=== PATIENT | female | born 1955 | race Caucasian/White ===

== ENCOUNTER → 2018-05-19 | Outpatient (CLI) | payer OTHER | LOC: CIMAGING 10:00 | PROVIDERS: ATTEND Family Medicine | DX: M20.11 Hallux valgus (acquired), right foot (principal); M19.071 Primary osteoarthritis, right ankle and foot; M77.31 Calcaneal spur, right foot | CPT/HCPCS: 73630-PO ==

== ENCOUNTER 2018-09-08 16:26 | Emergency (ER) | payer OTHER ==
--- NOTE | 2018-09-08 17:30 | EDPHY ---
H & P Stated Complaint: HEAD INJURY ON 09/04 Time Seen by Provider: 09/08/18 16:47 HPI/ROS: CHIEF COMPLAINT: Head injury, concern about black eyes HISTORY OF PRESENT ILLNESS: 63-year-old female with history of meningioma and visual loss presents with a concern about black eyes. She tripped and fell forward while gardening 5 days ago. She twisted her neck, and may have hit her head. She has a low-grade headache 2/10 and neck discomfort since the injury. Today she looked in the mirror and thought that she had black eyes. This concern for black eyes prompted her visit today. REVIEW OF SYSTEMS: complete 10 point ROS reviewed and is negative except for the noted elements in the HPI Source: Patient - Personal History Current Tetanus Diphtheria and Acellular Pertussis (TDAP): Yes - Medical/Surgical History Hx Asthma: No Hx Chronic Respiratory Disease: No Hx Diabetes: No Hx Cardiac Disease: No Hx Renal Disease: No Hx Cirrhosis: No Hx Alcoholism: No Hx HIV/AIDS: No Hx Splenectomy or Spleen Trauma: No Other PMH: MENINGIOMA REMOVED 2015, R KNEE REPLACEMENT - Social History Smoking Status: Never smoked Alcohol Use: Sober Drug Use: None - Physical Exam Exam: General Appearance: Alert, pleasant Head: Atraumatic Eyes: No conjunctival erythema, no periorbital ecchymosis ENT, Mouth: No hemotympanum, no oral trauma, no bony tenderness Neck: No midline tenderness, full range of motion without pain Respiratory: No chest wall tenderness, lungs clear bilaterally Cardiovascular: Regular rate and rhythm Abdomen: Abdomen is soft and nontender Back: Normal inspection, no midline tenderness Skin: No lacerations, no abrasions Back: No midline T/L/S tenderness Extremities: Pelvis is stable and nontender; no extremity tenderness or deformity Neurological: A&Ox3, normal motor function, normal sensory exam, cranial nerves intact (except II) Psychiatric: Mood and affect normal Constitutional: Initial Vital Signs Temperature (C) 36.4 C 09/08/18 16:29 Heart Rate 80 09/08/18 16:29 Respiratory Rate 16 09/08/18 16:29 Blood Pressure 140/74 H 09/08/18 16:29 O2 Sat (%) 95 09/08/18 16:29 O2 Delivery Mode Room Air Allergies/Adverse Reactions: codeine Allergy (Verified 09/08/18 16:32) shellfish derived Allergy (Verified 09/08/18 16:32) Home Medications: Medication Instructions Recorded Ambien 09/08/18 Phentermine HCl 09/08/18 Prednisone 09/08/18 Synthroid 09/08/18 Medical Decision Making ED Course/Re-evaluation: This patient presents with a concern for black eyes. There is no periorbital ecchymoses on exam. The patient's confirms that he does not see periorbital ecchymosis and the patient was reassured. I do not feel that neuro imaging is indicated in this patient. She has a normal neurologic exam (except for chronic visual loss) and a mild headache. Departure - Departure Disposition: Home, Routine, Self-Care Clinical Impression: Head injury, Neck strain Condition: Good Instructions: Cervical Strain (ED), Head Injury (ED) Additional Instructions: Ibuprofen 600 mg 3 times daily while the pain persists. Referrals: Sharri Mckeon [Primary Care Provider] - As per Instructions
[2018-09-08 18:00] VITALS: BP 128/77
== END 2018-09-08 17:59 | disposition home or self-care (01) ==
DX: S09.90XA Unspecified injury of head, initial encounter (principal); S16.1XXA Strain of muscle, fascia and tendon at neck level, initial encounter; W19.XXXA Unspecified fall, initial encounter; Y93.H2 Activity, gardening and landscaping